=== PATIENT | female | born 1965 | race Caucasian/White ===

== ENCOUNTER 2018-07-10 07:54 | Outpatient (CLI) | payer OTHER ==
[~2018-07-10 07:54] MED LIST: COLACE100 MG PO; DIOVAN HCT 160-1 TAB PO; DIOVAN160 M1 PO; GAS-X125 M1 PO; INDERAL LA80 MG PO; OMEPRAZOLE-BIC1 EAC1 PO; PLAQUENIL PO; TYLENOL-CODEINE1 TAB PO; ZANTAC300 MG PO
== END 2018-07-10 08:01 | disposition home or self-care (01) ==
LOC: RX STUDY 07:54
DX: K21.0 Gastro-esophageal reflux disease with esophagitis (principal); R10.13 Epigastric pain; K91.5 Postcholecystectomy syndrome